=== PATIENT | male | born 1985 | race Caucasian/White ===

== ENCOUNTER 2017-08-12 05:43 | Day surgery (SDC) | payer OTHER ==
[2017-08-11 10:56] VITALS: BMI 25.6
[2017-08-12] VITALS (9 sets, daily range): BP systolic 106–118; BP diastolic 50–72; PULSE 52–76; RESP 12–18; Ht 190.5 cm; Wt 93.5 kg
[~2017-08-12] VITALS: Ht 190.5 cm; Wt 93.5 kg
[2017-08-12] MEDS ORDERED: CEFAZOLIN 2 GM/50 ML (PMX) 50 ML IVPB ONE (06:30)
[2017-08-12] MEDS ORDERED: LACTATED RINGER'S 1,000 ML IV* SCH (06:30)
[2017-08-12] MEDS ORDERED: [UNRECOGNIZED DRUG - OTHER] (06:53)
[2017-08-12] MEDS ORDERED: BUPIVACAINE 0.5% (SDV) 30 ML INJ ONE (07:06)
[2017-08-12] MEDS ORDERED: LIDOCAINE 2%/EPI 30 ML INJ ONE (07:06)
[2017-08-12] MEDS ORDERED: POLYMYXIN/BACITRACIN 1L IRRIG ONE (07:07)
[2017-08-12] MEDS ORDERED: GENTAMICIN 80 MG INJ ONE (07:07)
[2017-08-12] MEDS ORDERED: BACITRACIN 0.9 GM OINT ONE (07:10)
[2017-08-12] MEDS ORDERED: MUPIROCIN 2% 15 GM CR ONE (07:13)
--- NOTE | 2017-08-12 07:13 | HPN ---
Date/Time of Note Date/Time of Note DATE: 08/12/17 TIME: 07:12 Interval H&P Admission Note Pt. seen H&P reviewed: No system changes CHARLIE POP MD Aug 12, 2017 07:13
[2017-08-12] MEDS ORDERED: MIDAZOLAM 1 MG/ML 2 ML INJ ONE (07:28)
[2017-08-12] MEDS ORDERED: FENTAnyl 50 MCG/ML VIAL ONE ×3 (07:29→08:29)
[2017-08-12] MEDS ORDERED: PROPOFOL 20 ML ONE (07:29)
[2017-08-12] MEDS ORDERED: CEFAZOLIN 1 GM INJ ONE (08:15)
[2017-08-12] MEDS ORDERED: ONDANSETRON 4 MG INJ IV PRN (09:00)
[2017-08-12] MEDS ORDERED: OXYCODONE/ACETAMINOPHEN (5/325) TAB PO PRN ×3 (09:00)
[2017-08-12] MEDS ORDERED: HYDROmorphONE (0.2 MG/ML) 10ML SYG IV PRN ×3 (09:00)
[2017-08-12] MEDS ORDERED: DIPHENHYDRAMINE 50 MG INJ IV PRN (09:00)
[2017-08-12] MEDS ORDERED: MEPERIDINE 25 MG INJ IV PRN (09:00)
--- NOTE | 2017-08-12 09:04 | OPPN ---
Date/Time of Note Date/Time of Note DATE: 08/12/17 TIME: 08:56 Operative Report Preoperative Diagnosis Enlarging Tumor Left Lower Lip Postoperative Diagnosis Same Operation/Procedure Performed Excision and Flap Repair of Tumor Left Lower Lip Surgeon Charlie Mike M.D. see signature line assistant store manager None Anesthesia: moderate sedation Estimated blood loss: 0 - 10 ml's Transfusion Required none Specimen Enlarging Tumor Left Lower Lip Grafts/Implants none Complications none CHARLIE MIKE MD Aug 12, 2017 09:04
--- NOTE | 2017-08-12 10:50 | OPR ---
DATE OF OPERATION: 08/12/2017 PREOPERATIVE DIAGNOSIS: Enlarging tumor left lower lip, persistent. POSTOPERATIVE DIAGNOSIS: Enlarging tumor left lower lip, persistent. PROCEDURE: Excision and flap repair of tumor left lower lip (2.3 cm x 1.8 cm). SURGEON: Michael Mike MD. MACHINE SETTER: None. ANESTHESIA: Modified anesthesia care with moderate sedation. ANESTHESIOLOGIST: Giselle Gregg MD ANESTHESIA INFILTRATION: 10 mL of 1 percent lidocaine, 0.125 percent Marcaine, and 1:200,000 epinephrine solution. ESTIMATED BLOOD LOSS: 5 mL. DRAINS: None. DRESSING: Bactroban cream and dry sterile dressing. SPECIMEN: Enlarging tumor left lower lip in formalin to pathology. OPERATIVE PROCEDURE: The patient received 2 g of intravenous Ancef antibiotic. Also with the patient in sitting position in the holding area. Markings were made for the planned procedure. In the operating room with the patient in supine position following adequate monitoring and induction of adequate level of monitored anesthesia care with moderate intravenous sedation by Dr. Gregg, anesthesiologist. The left lower lip and the operative site were injected with adequate amount of local anesthetic solution. This included nerve block for the left mental nerve. Following routine prep and drape and surgical pause the operation was begun by incising an elliptical shape of mucosal and skin overlying the tumor. This incision was deepened through subcutaneous tissue until the multicystic spongy tumor was reached. Plan of dissection was carefully carried around the periphery of the tumor. This tumor was noted to be a multicystic tumor with a clear and thick viscous serous content. This specimen was sent to pathology for examination in formalin. The specimen measured 2.3 cm x 1.8 cm. At this point operative area was irrigated using copious amount of triple antibiotic solution. Initial attempt for primary intention was noted to cause significant deformity of the left lower lip and a concern for postoperative dehiscents due to the size, direction, and location of the defect. Therefore a double advancement fasciocutaneous flap was elevated and advanced. That assisted with tension free closure of the defect. This reconstruction was performed using 3- 0, 4-0, and 5-0 Monocryl sutures interrupted and continuous fashion. Repair was found to satisfactory upon its completion. Dressing was applied as mentioned above. The patient tolerated this procedure very well. The patient left the operating room to the recovery room awake, stable and in comfortable satisfactory and stable condition. Dictated By: Michael Mike MD /fnt/marifer /Document#: [id number]
== END 2017-08-12 10:13 | disposition home or self-care (01) ==
LOC: SDS 05:43
PROVIDERS: ATTEND Plastic Surgery
DX: K13.0 Diseases of lips (principal)
CPT/HCPCS: 14060; 88305; J0690; J1580; J2250; J3010